=== PATIENT | male | born 2000 | race Two or more races ===

== ENCOUNTER 2019-05-20 08:21 | Emergency (ER) | payer OTHER ==
[~2019-05-20] VITALS: Ht 175.3 cm; Wt 65.8 kg
[2019-05-20] MEDS ORDERED: PROTONIX40 MG PO (08:43)
== END 2019-05-20 14:13 | disposition home or self-care (01) ==
LOC: ER 08:21
DX: K52.89 Other specified noninfective gastroenteritis and colitis (principal)

== ENCOUNTER 2019-08-02 18:35 | Emergency (ER) | payer OTHER ==
[~2019-08-02] VITALS: Ht 182.9 cm; Wt 74.8 kg
[~2019-08-02 18:35] MED LIST: PROTONIX40 MG PO
== END 2019-08-02 21:02 | disposition home or self-care (01) ==
LOC: EMR PED 18:35 → ER 18:36
DX: J03.90 Acute tonsillitis, unspecified (principal)

== ENCOUNTER 2019-11-13 11:45 | Outpatient (CLI) | payer OTHER | END 2019-11-13 11:53 | disposition home or self-care (01) | LOC: LAB 11:45 | PROVIDERS: ATTEND General Practice | DX: R73.01 Impaired fasting glucose (principal); B35.4 Tinea corporis ==

== ENCOUNTER 2019-11-25 10:56 | Emergency (ER) | payer OTHER ==
[~2019-11-25] VITALS: Ht 182.9 cm; Wt 81.6 kg
== END 2019-11-25 13:14 | disposition home or self-care (01) ==
LOC: ER 10:56
DX: R07.89 Other chest pain (principal)

== ENCOUNTER 2020-08-30 13:25 | Emergency (ER) | payer OTHER ==
[~2020-08-30] VITALS: Ht 154.9 cm; Wt 81.6 kg
[2020-08-30] MEDS ORDERED: CAPSAICIN42.5 GM TOP (16:13)
[2020-08-30] MEDS ORDERED: NAPROXEN500 MG PO (16:13)
== END 2020-08-30 16:19 | disposition home or self-care (01) ==
LOC: ER 13:25 → EMR PED 13:32
DX: M93.89 Other specified osteochondropathies multiple sites (principal); M94.0 Chondrocostal junction syndrome [Tietze]; Z20.822 Contact with and (suspected) exposure to COVID-19

== ENCOUNTER → 2020-09-28 | Emergency (ER) | payer OTHER ==
[~2020-09-28] VITALS: Ht 180.3 cm; Wt 84.8 kg
[~2020-09-28] MED LIST changes: +CAPSAICIN42.5 GM TOP; +NAPROXEN500 MG PO
== END | disposition home or self-care (01) ==
LOC: ER 12:40 → EMR PED 12:40
DX: S00.83XA Contusion of other part of head, initial encounter (principal); R51.9 Headache, unspecified; V49.9XXA Car occupant (driver) (passenger) injured in unspecified traffic accident, initial encounter; Y93.89 Activity, other specified; Y92.488 Other paved roadways as the place of occurrence of the external cause; Y99.8 Other external cause status